=== PATIENT | female | born 2000 | race Two or more races ===

== ENCOUNTER 2023-11-09 16:27 | Emergency (ER) | payer OTHER ==
[~2023-11-09] VITALS: Ht 157.5 cm; Wt 86.0 kg
[2023-11-09 19:34] VITALS: BP 125/80; PULSE 107; RESP 16; TEMP 98; O2SAT 100
[2023-11-09] MEDS ORDERED: IBUP1TAB4 PO (20:05)
[2023-11-09] MEDS ORDERED: CEPH500T PO (20:05)
[2023-11-09] MEDS ORDERED: CEPHALEXIN 250 MG CAP PO ONE (20:15)
[2023-11-09] MEDS ORDERED: IBUPROFEN 400 MG TAB PO ONE (20:15)
== END 2023-11-09 20:35 | disposition home or self-care (01) ==
LOC: ER 16:27
DX: T81.30XA Disruption of wound, unspecified, initial encounter (principal)